=== PATIENT | female | born 1970 | race Caucasian/White ===

== ENCOUNTER 2017-05-18 10:55 | Inpatient (IN) | payer OTHER ==
[2017-05-18] MEDS ORDERED: Sodium Chloride 0.9% 1,000 ML IV STA (12:27)
--- NOTE | 2017-05-18 12:33 | ED PDOC ---
HPI: General Adult Time Seen by Provider: 05/18/17 11:01 Chief Complaint (Nursing): Pain, Chronic History Per: Patient, Support Specialist (Pashto #[id number]) Additional Complaint(s): Pt. states 1 week ago she was sitting down when she developed dizziness and both her eyes went "black." States that symptoms resolved after 2 minutes and did not return again until today at 0800. Reports symptoms lasted for approximately 10 minutes then resolved but at 0930 dizziness and visual changes occurred and lasted for 20 minutes. Reports dizziness has remained and states symptoms are worse with movement of the head. Also reports for the past week she 's had worsening diffuse bodyaches. Denies fever, headache, trauma, chest pain, palpitations, diarrhea, SOB, hearing changes, recent illness. Past Medical History Reviewed: Historical Data, Nursing Documentation, Vital Signs Vital Signs: Last Vital Signs Temp 98.7 F 05/18/17 16:28 Pulse 87 05/18/17 16:28 Resp 17 05/18/17 16:37 BP 109/71 05/18/17 16:28 Pulse Ox 100 05/18/17 16:37 - Medical History PMH: Diabetes, Hypercholesterolemia Denies: Chronic Kidney Disease - Family History Family History: States: No Known Family Hx - Home Medications Home Medications: Ambulatory Orders Medication Instructions Recorded Cholecalciferol [Vitamin D 1000 IU] 1,000 unit PO DAILY 05/18/17 Dapagliflozin Propanediol [Farxiga] 5 mg PO DAILY 05/18/17 Gabapentin [Neurontin] 100 mg PO HS 05/18/17 MetFORMIN [glucoPHAGE] 1,000 mg PO BID 05/18/17 Naproxen [Naprosyn] 500 mg PO Q12H PRN 05/18/17 Pravastatin Sodium [Pravachol] 40 mg PO HS 05/18/17 Repaglinide [Prandin] 1 mg PO TID 05/18/17 - Allergies Allergies/Adverse Reactions: Allergies Allergy/AdvReac Type Severity Reaction Status Date / Time No Known Allergies Allergy Verified 09/27/15 16:08 Review of Systems ROS Statement: Except As Marked, All Systems Reviewed And Found Negative Neurological: Positive for: Dizziness Physical Exam - Reviewed Nursing Documentation Reviewed: Yes Vital Signs Reviewed: Yes - Physical Exam Appears: Positive for: Well, Non-toxic, No Acute Distress Head Exam: Positive for: ATRAUMATIC, NORMAL INSPECTION, NORMOCEPHALIC Skin: Positive for: Normal Color, Warm. Negative for: Rash Eye Exam: Positive for: EOMI, Normal appearance, PERRL ENT: Positive for: Normal ENT Inspection Neck: Positive for: Normal, Painless ROM Cardiovascular/Chest: Positive for: Regular Rate, Rhythm Respiratory: Positive for: CNT, Normal Breath Sounds Gastrointestinal/Abdominal: Positive for: Normal Exam, Bowel Sounds, Soft. Negative for: Tenderness Back: Positive for: Normal Inspection Extremity: Positive for: Normal ROM Neurologic/Psych: Positive for: Alert, Oriented. Negative for: Aphasia, Facial Droop - Laboratory Results Result Diagrams: 05/18/17 12:30 05/18/17 12:30 - ECG ECG: Positive for: Interpreted By Me ECG Rhythm: Positive for: Sinus Rhythm. Negative for: ST/T Changes Rate: 87 O2 Sat by Pulse Oximetry: 100 - Radiology X-Ray: Interpreted by Me (CXR) X-Ray Interpretation: No Acute Disease - Progress ED Course And Treament: Labs ordered. CT head w/o contrast ordered. IV NS bolus, antivert PO ordered. Pt. placed on nuclear monitoring technician. 1420 Case d/w Dr. Florian and Dr. Feliz, arrangements made for 23 hr telemetry observation. Disposition - Clinical Impression Clinical Impression: Near syncope - Patient ED Disposition Is Patient to be Admitted: Yes - Disposition Disposition Time: 14:23 Condition: FAIR - Pt Status Changed To: Hospital Disposition Of: Observation
--- NOTE | 2017-05-18 12:50 | CT ---
PROCEDURE: CT HEAD WITHOUT CONTRAST. HISTORY: dizziness COMPARISON: None available. TECHNIQUE: Axial computed tomography images were obtained through the head/brain without intravenous contrast. Radiation dose: Total exam DLP = 773.5 mGy-cm. This CT exam was performed using one or more of the following dose reduction techniques: Automated exposure control, adjustment of the mA and/or kV according to patient size, and/or use of iterative reconstruction technique. FINDINGS: HEMORRHAGE: No intracranial hemorrhage. BRAIN: No mass effect or edema. No atrophy or chronic microvascular ischemic changes. VENTRICLES: Unremarkable. No hydrocephalus. CALVARIUM: Unremarkable. PARANASAL SINUSES: Unremarkable as visualized. No significant inflammatory changes. MASTOID AIR CELLS: Unremarkable as visualized. No inflammatory changes. OTHER FINDINGS: None. IMPRESSION: No evidence of acute intracranial hemorrhage mass lesion mass effect or midline shift.
[2017-05-18 13:21] LABS: BASO % 0.3 % (0.0-2.0); EOS # 0.1 K/uL (0.0-0.7); EOS % 0.6 % (0.0-4.0); HEMATOCRIT 40.4 % (34.0-47.0); LYMPH # 2.4 K/uL (1.0-4.3); LYMPH % 25.5 % (20.0-40.0); MEAN CELL VOLUME 90.4 fl (81.0-99.0); MEAN CORPUSCULAR HEMOGLOBIN 31.1 pg (27.0-31.0); MEAN CORPUSCULAR HGB CONC 34.4 g/dL (33.0-37.0); MEAN PLATELET VOLUME 9.2 fl (7.2-11.7); MONO # 0.7 K/uL (0.0-0.8); MONO % 7.1 % (0.0-10.0); NEUT # 6.4 K/uL (1.8-7.0); NEUT % 66.5 % (50.0-75.0); NRBC % 0.1 % (0.0-0.0); RED CELL DISTRIBUTION WIDTH 13.2 % (11.5-14.5); WHITE BLOOD COUNT 9.6 K/uL (4.8-10.8)
[2017-05-18 13:29] LABS: ALB/GLOB RATIO 1.6 (1.0-2.1); ALKALINE PHOSPHATASE 71 U/L (38-126); ALT/SGPT 31 U/L (9-52); AST/SGOT 27 U/L (14-36); BILIRUBIN,TOTAL 0.4 mg/dl (0.2-1.3); BLOOD UREA NITROGEN 15 mg/dl (7-17); CARBON DIOXIDE 21 mmol/L (22-30); CHLORIDE 107 mmol/L (98-107); GFR AFRICAN-AMERICAN > 60; GLUCOSE,RANDOM 85 mg/dL (65-105); POTASSIUM 3.9 MMOL/L (3.6-5.0); SODIUM 143 mmol/l (132-148); TOTAL PROTEIN 7.3 G/DL (6.3-8.2)
--- NOTE | 2017-05-18 13:30 | RAD ---
HISTORY: Dizziness. Portable study 12:49. COMPARISON: 09/27/2016 FINDINGS: LUNGS: No active pulmonary disease. PLEURA: No significant pleural effusion identified, no pneumothorax apparent. CARDIOVASCULAR: Normal. OSSEOUS STRUCTURES: No significant abnormalities. VISUALIZED UPPER ABDOMEN: Normal. OTHER FINDINGS: None. IMPRESSION: No active disease. No significant interval change compared to the prior examination(s).
[2017-05-18] MEDS ORDERED: Naproxen 500 MG TAB PO PRN (14:55)
[2017-05-18] MEDS ORDERED: Dextrose 50% SYRINGE Inj (50 ml) IV PRN (14:58)
[2017-05-18] MEDS ORDERED: Glucagon Recombinant 1 mg Inj IM PRN (14:58)
--- NOTE | 2017-05-18 15:17 | CP.PCM.HP ---
History of Present Illness - History of Present Illness History of Present Illness: 46 YO F PMH of DM2, HLD presents to the ER with episodes of dizziness over the last two weeks. Patient states that these episodes started after her PMD changed her diabetes mediation. She was initially taking Metformin and Prantin, and since her blood sugars remained elevated her PMD gave her samples to start taking, patient can not recall the name. PMD office was called and was unable to get in touch with her. - Patient describes the episodes of dizziness associated with sweating and palpitation, nausea but no vomiting which last up to 2 min. Patient had one eppisode at 8 am this morning and another one at 9:30 am this morning. Denies passing out or hitting her head. ROS: 14 systems reviewed, negative other than HPI MHx: DM2, HLD SHx: None Allergies: NKDA Medications: as per med-rec Family Hx: No family history of CAD, CVA, or other cardiovascular disease Social Hx: Lives with family, denies tobacco, occasional EtOH Present on Admission - Present on Admission Any Indicators Present on Admission: Yes History of Uncontrolled Diabetes: Yes Past Patient History - Past Social History Smoking Status: Never Smoked - CARDIAC Hx Cardiac Disorders: Yes (High cholesterol) - PULMONARY Hx Respiratory Disorders: No - NEUROLOGICAL Hx Neurological Disorder: No - HEENT Hx HEENT Problems: No - RENAL Hx Chronic Kidney Disease: No - ENDOCRINE/METABOLIC Hx Endocrine Disorders: Yes (DM 2) - HEMATOLOGICAL/ONCOLOGICAL Hx Blood Disorders: No - INTEGUMENTARY Hx Dermatological Problems: No - MUSCULOSKELETAL/RHEUMATOLOGICAL Hx Musculoskeletal Disorders: No - GASTROINTESTINAL Hx Gastrointestinal Disorders: No - GENITOURINARY/GYNECOLOGICAL Hx Genitourinary Disorders: No - PSYCHIATRIC Hx Psychophysiologic Disorder: No Hx Substance Use: No - SURGICAL HISTORY Hx Surgeries: No - ANESTHESIA Hx Anesthesia: No Meds Allergies/Adverse Reactions: Allergies Allergy/AdvReac Type Severity Reaction Status Date / Time No Known Allergies Allergy Verified 09/27/15 16:08 Physical Exam - Constitutional Appears: No Acute Distress - Head Exam Head Exam: NORMAL INSPECTION - Eye Exam Eye Exam: Normal appearance - Neck Exam Neck exam: Positive for: Normal Inspection - Respiratory Exam Respiratory Exam: Clear to Auscultation Bilateral, NORMAL BREATHING PATTERN. absent: Rhonchi, Wheezes - Cardiovascular Exam Cardiovascular Exam: REGULAR RHYTHM, +S1, +S2 - GI/Abdominal Exam GI & Abdominal Exam: Normal Bowel Sounds, Soft. absent: Tenderness - Extremities Exam Extremities exam: Positive for: normal inspection. Negative for: calf tenderness - Back Exam Back exam: NORMAL INSPECTION - Neurological Exam Neurological exam: Alert, CN II-XII Intact, Oriented x3 - Skin Skin Exam: Normal Color, Warm Results - Vital Signs Recent Vital Signs: Last Vital Signs Temp 98.4 F 05/18/17 14:58 Pulse 94 H 05/18/17 14:58 Resp 17 05/18/17 14:58 BP 109/67 05/18/17 14:58 Pulse Ox 100 05/18/17 14:58 - Labs Result Diagrams: 05/18/17 12:30 05/18/17 12:30 Labs: Laboratory Results - last 24 hr 05/18/17 05/18/17 12:30 12:30 WBC 9.6 D RBC 4.47 Hgb 13.9 Hct 40.4 MCV 90.4 D MCH 31.1 H MCHC 34.4 RDW 13.2 Plt Count 239 MPV 9.2 Neut % (Auto) 66.5 Lymph % (Auto) 25.5 [place] % (Auto) 7.1 Eos % (Auto) 0.6 Baso % (Auto) 0.3 Neut # 6.4 Lymph # 2.4 [place] # 0.7 Eos # 0.1 Baso # 0.0 Sodium 143 Potassium 3.9 Chloride 107 Carbon Dioxide 21 L Anion Gap 19 BUN 15 Creatinine 0.5 L Est GFR ( Amer) > 60 Est GFR (Non-Af Amer) > 60 Random Glucose 85 Calcium 9.0 Total Bilirubin 0.4 AST 27 ALT 31 Alkaline Phosphatase 71 Troponin I < 0.0120 Total Protein 7.3 Albumin 4.5 Globulin 2.8 Albumin/Globulin Ratio 1.6 Assessment & Plan - Assessment and Plan (Free Text) Assessment: 1) Dizziness near syncope: - Most likely secondary to hypoglycemia with new medication - F/U with medication patient was taking: Asked her daughter to bring medication - CT :No acute changes noted - Meclazine PRN - Neuro and cardio consulted 2) DM 2: - Metformin 1000 BID - F/U with pts sample medication she was taking 3) HLD - continue home meds 4) DVT prophylaxis - Lovenox
--- NOTE | 2017-05-18 16:24 | CP.PCM.CON ---
History of Present Illness - History of Present Illness History of Present Illness: PT W SEVERAL EPISODES OF DIZZINESS WITH TREMULOUSNESS AND NAUSEA. PT DRANK JUICE WITH RESOLUTION. NEW DM STARTED RECENTLY. DOESNT RECALL IF SHE ATE PRIOR TO MEDS. NO CP, NO PALP, NO SYNCOPE, NO SOB. MILD DYSPNEA WITH DIZZINESS. SX CAME ON GRADUALLY AND RESOLVED GRADUALLY. Review of Systems - Constitutional Constitutional: As Per HPI. absent: Anorexia, Chills, Daytime Sleepiness, Excessive Sweating, Fatigue, Fever, Frequent Falls, Headache, Increased Appetite , Lethargy, Malaise, Night Sweats, Snoring, Sleep Apnea, Weight Gain, Weight Loss, Weakness, Other - EENT Eyes: As Per HPI. absent: Blind Spots, Blurred Vision, Change in Vision, Decreased Night Vision, Diplopia, Discharge, Dry Eye, Exophthalmos, Floaters, Irritation, Itchy Eyes, Loss of Peripheral Vision, Pain, Photophobia, Requires Corrective Lenses, Sees Flashes, Spots in Vision, Tunnel Vision, Other Visual Disturbances, Loss of Vision, Other Ears: As Per HPI. absent: Decreased Hearing, Ear Discharge, Ear Pain, Tinnitus , Abnormal Hearing, Disequilibrium, Dizziness, Other Nose/Mouth/Throat: As Per HPI. absent: Epistaxis, Nasal Congestion, Nasal Discharge, Nasal Obstruction, Nasal Trauma, Nose Pain, Post Nasal Drip, Sinus Pain, Sinus Pressure, Bleeding Gums, Change in Voice, Dental Pain, Dry Mouth, Dysphagia, Halitosis, Hoarsness, Lip Swelling, Mouth Lesions, Mouth Pain, Odynophagia, Sore Throat, Throat Swelling, Tongue Swelling, Facial Pain, Neck Pain, Neck Mass, Other - Breasts Breasts: absent: As Per HPI, Change in Shape, Mass, Pain, Nipple Discharge, Nipple Inversion, Skin Changes, Swelling, Other - Cardiovascular Cardiovascular: Dyspnea, Lightheadedness. absent: As Per HPI, Acrocyanosis, Chest Pain, Chest Pain at Rest, Chest Pain with Activity, Claudication, Diaphoresis, Dyspnea on Exertion, Edema, Irregular Heart Rhythm, Pain Radiating to Arm/Neck/Jaw, Leg Edema, Leg Ulcers, Orthopnea, Palpitations, Paroxysmal Nocturnal Dyspnea, Pedal Edema, Radiating Pain, Rapid Heart Rate, Slow Heart Rate, Syncope, Other - Respiratory Respiratory: absent: As Per HPI, Cough, Dyspnea, Hemoptysis, Dyspnea on Exertion , Wheezing, Snoring, Stridor, Pain on Inspiration, Chest Congestion, Excessive Mucous Production, Change in Mucous Color, Pain with Coughing, Other - Gastrointestinal Gastrointestinal: As Per HPI, Nausea. absent: Abdominal Pain, Belching, Bloating, Change in Bowel Habits, Change in Stool Character, Coffee Ground Emesis, Constipation, Cramping, Diarrhea, Dyspepsia, Dysphagia, Early Satiety, Excessive Flatus, Fecal Incontinence, Heartburn, Hematemesis, Hematochezia, Loose Stools, Melena, Odynophagia, Temesmus, Vomiting, Other - Genitourinary Genitourinary: absent: As Per HPI, Change in Urinary Stream, Difficulty Urinating, Dysuria, Flank Pain, Hematuria, Pyuria, Nocturia, Urinary Incontinence, Urinary Frequency, Urinary Hesitance, Urinary Urgency, Voiding Freq/Small Amts, Freq UTI, Hx Renal/Bladder Calculi, Hx /Renal Surgery, Bladder Distension, Other - Reproductive: Female Reproductive:Female: absent: As Per HPI, Amenorrhea, Amenorrhea/ Control, Currently Menstual, Cycle <21 Days, Cycle >35 Days, Cycle Variable, Menses 1-7 Days, Menses >/= 8 Days, Menses Variable, Cycle > 4 Weeks Between, No Menses for 6 Months, Heavy Menses, Light Menses, Normal Menses, Spotting Between Cycles , S/P Hysterectomy, Menopausal, Post Menopausal, Premenarche, Abnormal Vaginal Bleeding, Dysmenorrhea, Dyspareunia, Genital Lesions, Genital Pruritis, Pelvic Pain, Prolapse Symptoms, Sexual Dysfunction, Vaginal Discharge, Vaginal Dryness , Vaginal Odor, Vaginal Pruritis, Other - Menstruation Menstruation: absent: As Per HPI, Amenorrhea, Amenorrhea/ Control, Currently Menstual, Cycle <21 Days, Cycle >35 Days, Cycle Variable, Menses 1-7 Days, Menses >/= 8 Days, Menses Variable, Cycle > 4 Weeks Between, No Menses for 6 Months, Heavy Menses, Light Menses, Normal Menses, Spotting Between Cycles , S/P Hysterectomy, Menopausal, Post Menopausal, Premenarche, Abnormal Vaginal Bleeding, Dysmenorrhea, Other - Musculoskeletal Musculoskeletal: absent: As Per HPI, Abnormal Gait, Arthralgias, Atrophy, Back Pain, Deformity, Joint Swelling, Limited Range of Motion, Loss of Height, Muscle Cramps, Muscle Weakness, Myalgias, Neck Pain, Numbness, Radiating Pain into Limb, Stiffness, Tingling, Other - Integumentary Integumentary: absent: As Per HPI, Acne, Alopecia, Bleeding Lesions, Change in Hair, Change in Nails, Change in Pigmentation, Changing Lesions, Dry Skin, Erythema, Furuncle, Hirsutism, Lesions, New Lesions, Non-Healing Lesions, Photosensitivity, Pruritus, Rash, Skin Pain, Skin Ulcer, Sores, Striae, Swelling , Unusual Bruising, Wounds, Jaundice, Other - Neurological Neurological: absent: As Per HPI, Abnormal Gait, Abnormal Hearing, Abnormal Movements, Abnormal Speech, Behavioral Changes, Burning Sensations, Confusion, Convulsions, Disequilibrium, Dizziness, Numbness, Focal Weakness, Frequent Falls , Headaches, Lack of Coordination, Loss of Vision, Memory Loss, Paresthesias, Radicular Pain, Restless Legs, Sensory Deficit, Syncope, Tingling, Tremor, Vertigo, Weakness, Other Visual Disturbances, Other - Psychiatric Psychiatric: absent: As Per HPI, Abnormal Sleep Pattern, Anhedonia, Anxiety, Auditory Hallucinations, Behavioral Changes, Change in Appetite, Change in Libido, Confusion, Depression, Difficulty Concentrating, Hallucinations, Homicidal Ideation, Hopelessness, Irritability, Memory Loss, Mood Swings, Panic Attacks, Paranoia, Suicidal Ideation, Visual Hallucinations, Tactile Hallucinations, Other - Endocrine Endocrine: absent: As Per HPI, Change in Body Appearance, Change in Libido, Cold Intolorance, Deepening of Voice, Excessive Sweating, Fatigue, Flushing, Heat Intolorance, Increase in Ring/Shoe/Hat Size, Palpitations, Polydipsia, Polyphagia, Polyuria, Other - Hematologic/Lymphatic Hematologic: absent: As Per HPI, Easy Bleeding, Easy Bruising, Lymphadenopathy, Other Past Patient History - Past Social History Smoking Status: Never Smoked Chewing Tobacco Use: No Cigar Use: No Alcohol: None Drugs: Denies Home Situation {Lives}: With Family Domestic Violence: Negative - CARDIAC Hx Cardiac Disorders: Yes (High cholesterol) - PULMONARY Hx Respiratory Disorders: No - NEUROLOGICAL Hx Neurological Disorder: No - HEENT Hx HEENT Problems: No - RENAL Hx Chronic Kidney Disease: No - ENDOCRINE/METABOLIC Hx Endocrine Disorders: Yes (DM 2) - HEMATOLOGICAL/ONCOLOGICAL Hx Blood Disorders: No - INTEGUMENTARY Hx Dermatological Problems: No - MUSCULOSKELETAL/RHEUMATOLOGICAL Hx Musculoskeletal Disorders: No - GASTROINTESTINAL Hx Gastrointestinal Disorders: No - GENITOURINARY/GYNECOLOGICAL Hx Genitourinary Disorders: No - PSYCHIATRIC Hx Psychophysiologic Disorder: No Hx Substance Use: No - SURGICAL HISTORY Hx Surgeries: No - ANESTHESIA Hx Anesthesia: No Meds Allergies/Adverse Reactions: Allergies Allergy/AdvReac Type Severity Reaction Status Date / Time No Known Allergies Allergy Verified 09/27/15 16:08 - Medications Medications: Current Medications Dextrose (Dextrose 50% Inj) 0 ml IV STAT PRN; Protocol PRN Reason: Hyglycemia Protocol Dextrose (Glutose 15) 0 gm PO ONCE PRN; Protocol PRN Reason: Hypoglycemia Protocol Enoxaparin Sodium (Lovenox) 40 mg SC DAILY PRANAV PRN Reason: Protocol Gabapentin (Neurontin) 100 mg PO HS PRANAV Glucagon (Glucagen Diagnostic Kit) 0 mg IM STAT PRN; Protocol PRN Reason: Hypoglycemia Protocol Meclizine HCl (Antivert) 12.5 mg PO DAILY PRN PRN Reason: Dizziness Metformin HCl (Glucophage) 1,000 mg PO BID PRANAV Naproxen (Naproxen) 500 mg PO Q12H PRN PRN Reason: Pain, moderate (4-7) Pravastatin Sodium (Pravachol) 40 mg PO HS PRANAV Physical Exam - Constitutional Appears: Well - Head Exam Head Exam: ATRAUMATIC, NORMAL INSPECTION, NORMOCEPHALIC - Eye Exam Eye Exam: EOMI, Normal appearance, PERRL. absent: Conjunctival injection, Nystagmus, Periorbital swelling, Periorbital tenderness, Scleral icterus Pupil Exam: NORMAL ACCOMODATION, PERRL. absent: Fixed, Irregular, Miosis, Mydriatic, Unequal - ENT Exam ENT Exam: Mucous Membranes Moist, Normal Exam. absent: Mucous Membranes Dry, Normal External Ear Exam, Normal Oropharynx, TM's Normal Bilaterally - Neck Exam Neck exam: Positive for: Normal Inspection. Negative for: Full Rom, Lymphadenopathy, Meningismus, Tenderness, Thyromegaly - Respiratory Exam Respiratory Exam: Clear to Auscultation Bilateral, NORMAL BREATHING PATTERN. absent: Accessory Muscle Use, Chest Wall Tenderness, Decreased Breath Sounds, Prolonged Expiratory Phase, Rales, Rhonchi, Wheezes, Respiratory Distress, Stridor - Cardiovascular Exam Cardiovascular Exam: REGULAR RHYTHM, +S1, +S2, Systolic Murmur. absent: Bradycardia, Tachycardia, Clicks, Diastolic murmur, Gallop, Irregular Rhythm, JVD, RRR, Rubs, +S4 - GI/Abdominal Exam GI & Abdominal Exam: Normal Bowel Sounds, Soft. absent: Bruit, Diminished Bowel Sounds, Distended, Firm, Guarding, Hernia, Hyperactive Bowel Sounds, Hypoactive Bowel Sounds, Mass, Organomegaly, Pulsatile Mass, Rebound, Rigid, Tenderness - Rectal Exam Rectal Exam: Deferred - Extremities Exam Extremities exam: Positive for: normal inspection. Negative for: calf tenderness, full ROM, joint swelling, normal capillary refill, pedal edema, tenderness, pedal pulses present - Back Exam Back exam: NORMAL INSPECTION. absent: CVA tenderness (L), CVA tenderness (R), FULL ROM, muscle spasm, paraspinal tenderness, rash noted, tenderness, vertebral tenderness - Neurological Exam Neurological exam: Alert, CN II-XII Intact, Normal Gait, Oriented x3, Reflexes Normal - Psychiatric Exam Psychiatric exam: Normal Affect, Normal Mood - Skin Skin Exam: Dry, Intact, Normal Color, Warm Results - Vital Signs Recent Vital Signs: Last Vital Signs Temp 98.4 F 05/18/17 15:28 Pulse 93 H 05/18/17 15:28 Resp 18 05/18/17 15:28 BP 110/74 05/18/17 15:28 Pulse Ox 99 05/18/17 15:28 - Labs Result Diagrams: 05/20/17 07:20 05/20/17 06:00 Labs: Laboratory Results - last 24 hr 05/18/17 05/18/17 12:30 12:30 WBC 9.6 D RBC 4.47 Hgb 13.9 Hct 40.4 MCV 90.4 D MCH 31.1 H MCHC 34.4 RDW 13.2 Plt Count 239 MPV 9.2 Neut % (Auto) 66.5 Lymph % (Auto) 25.5 [place] % (Auto) 7.1 Eos % (Auto) 0.6 Baso % (Auto) 0.3 Neut # 6.4 Lymph # 2.4 [place] # 0.7 Eos # 0.1 Baso # 0.0 Sodium 143 Potassium 3.9 Chloride 107 Carbon Dioxide 21 L Anion Gap 19 BUN 15 Creatinine 0.5 L Est GFR ( Amer) > 60 Est GFR (Non-Af Amer) > 60 Random Glucose 85 Calcium 9.0 Total Bilirubin 0.4 AST 27 ALT 31 Alkaline Phosphatase 71 Troponin I < 0.0120 Total Protein 7.3 Albumin 4.5 Globulin 2.8 Albumin/Globulin Ratio 1.6 Assessment & Plan (1) DM2 (diabetes mellitus, type 2) Status: Acute (2) HLD (hyperlipidemia) Status: Acute (3) Near syncope Status: Acute - Assessment and Plan (Free Text) Plan: SX APPEAR TO BE HYPOGLYCEMIA IN NATURE. CONT TELE, AWAIT ECHO, UT RULED OUT. BP STABLE, HR STABLE
[2017-05-18] MEDS: Sodium Chloride 0.9% 1,000 ML IV SCH (17:43)
--- NOTE | 2017-05-18 18:35 | MRI ---
PROCEDURE: MRI brain dated 05/18/2017 HISTORY: Dizziness. COMPARISON: Comparison made with CT scan of the brain obtained earlier same day TECHNIQUE: Multiplanar, multisequence MR images of the brain were obtained without intravenous contrast enhancement. FINDINGS: HEMORRHAGE: No acute parenchymal, subarachnoid or extra-axial hemorrhage. No hemosiderin deposition is identified on gradient echo weighted sequence. DWI: No evidence of an acute or early subacute infarction seen on diffusion imaging. . BRAIN PARENCHYMA: There are several tiny and nonspecific focal areas of increased T2 signal seen scattered about the deep and subcortical white matter both cerebral hemispheres. Changes are nonspecific though could represent chronic sequela of small vessel disease. Additional differential diagnostic considerations would include sequela of migraine headaches, old trauma, post infectious/inflammatory etiologies. Atypical presentation of a demyelinating disease process would be much less likely in the absence of a pertinent clinical history however not completely excluded. . VENTRICLES: No obstructive hydrocephalus. There is localized prominent on right parasagittal medullary cistern which appears to compress the basilar artery and right anterolateral medulla . This finding could represent an incidental arachnoid cyst. MRA of the brain is recommended for further evaluation and to exclude the possibility of an aneurysm which is unlikely CRANIUM: Calvarium appears grossly unremarkable. ORBITS: Orbits and contents unremarkable. PARANASAL SINUSES/MASTOIDS: Clear VASCULAR SYSTEM: Visualized major vascular flow voids at skull base are patent. OTHER FINDINGS: None. IMPRESSION: No acute intracranial hemorrhage or infarct. There are a few scattered several focal areas of increased T2 signal seen scattered about the deep and subcortical white matter both cerebral hemispheres on the nonspecific though may represent chronic sequela of small vessel disease. See above discussion for additional differential diagnostic considerations. Note is made of a localized prominence of the right parasagittal pre medullary cistern which appears to compress the basilar artery and right anterolateral border of the medulla. This may represent an arachnoid cyst. Recommend follow-up MRA of the brain to exclude the possibility of an aneurysm which is very unlikely though should confirmed.
--- NOTE | 2017-05-18 19:47 | CON ---
NEUROLOGY CONSULTATION REPORT DATE: REASON FOR CONSULTATION: Recurrent near syncope and dizziness. HISTORY OF PRESENT ILLNESS: The patient is a 46-year-old female who has been asked for evaluation of episodes of almost passing out. The patient currently is experiencing dizziness over the last 2 weeks. As per the patient, it started after her primary physician changed her antidiabetic medication. Patient described episodes as she gets dizzy and feels sweaty and start having palpitation and nausea, but no vomiting. This lasts a couple of minutes and then she gets better. She apparently had 3 such episodes during which she felt like she was going to pass out, but did not pass out completely. Denied any focal weakness in arms or legs. Denies any ringing in the ears or loss of hearing. Denies any loss of vision. PAST MEDICAL HISTORY: Includes diabetes mellitus, hypercholesterolemia. MEDICATIONS: At home include Prandin, Glucophage, Neurontin, vitamin D, Pravachol, and Naprosyn. ALLERGIES: NO KNOWN DRUG ALLERGIES. SOCIAL HISTORY: Patient is a nonsmoker, nonalcoholic, and does not use any illicit drugs. FAMILY HISTORY: Reviewed and noncontributory to the case. PHYSICAL EXAMINATION GENERAL: Patient is a middle aged female, lying on the bed in no acute distress. VITAL SIGNS: Her blood pressure is 109/67, her heart rate is 94 per minute, breathing at the rate of 16 per minute, temperature is 98.4 degrees Fahrenheit. HEENT: Normocephalic, atraumatic. NECK: Supple. There is no carotid bruits. LUNGS: Clear. CARDIOVASCULAR: S1 and S2 are audible. No murmurs. ABDOMEN: Soft, nontender. Bowel sounds are present. NEUROLOGY: Mini-mental status; patient is awake, alert, oriented to time, place, and person. Her speech is fluent. Naming and repetition is normal. Memory and cognition are intact. Cranial nerve: Pupils are 4 mm, bilaterally reactive to light. Visual sharma are full. Extraocular movements are intact. There is no facial asymmetry. Palate is upgoing bilaterally and tongue is midline. Motor: Tone is normal, power is 5/5 bilaterally in all extremities. The reflexes +2 and symmetrical. Plantars are downgoing bilaterally. Cerebellar: Ijxxjk-hq-ihfl shows no dysmetria. Sensory examination; intact to soft touch and pinprick. Gait is deferred at the moment. LABORATORY DATA: Reviewed. WBC 9.6, hemoglobin 13.9, hematocrit 40.4, and platelet of 239. The sodium 143, potassium 3.9, chloride 107, carbon dioxide content 21, BUN of 15, creatinine 0.5, and glucose of 85. She had a CT scan of the head, which is negative for any acute intracranial pathology. IMPRESSION: 1. Near syncope. 2. Dizziness. RECOMMENDATIONS: 1. Patient to have MRI of the brain without contrast. 2. Patient to have an electroencephalogram. 3. Patient to have cardiac monitoring to rule out any cardiac arrhythmias. 4. Please continue all other treatments and supportive care. Thank you for the opportunity to participate in the care of this patient. Jarad Crawley MD
[2017-05-18] MEDS: Pravastatin Sodium 40 MG TAB PO SCH (21:08)
[2017-05-19] MEDS: Sodium Chloride 0.9% 1,000 ML IV SCH ×2 (03:30→14:16)
[2017-05-19 07:26] LABS: BLOOD UREA NITROGEN 14 mg/dl (7-17); CALCIUM 8.4 mg/dL (8.4-10.2); CARBON DIOXIDE 23 mmol/L (22-30); CHLORIDE 109 mmol/L (98-107); GFR AFRICAN-AMERICAN > 60; GLUCOSE,RANDOM 106 mg/dL (65-105); MAGNESIUM 1.9 MG/DL (1.6-2.3); POTASSIUM 3.6 MMOL/L (3.6-5.0); SODIUM 142 mmol/l (132-148)
[2017-05-19 07:49] LABS: THYROID STIMULATING HORMONE 0.72 mIU/ML (0.46-4.68)
[2017-05-19] MEDS ORDERED: Gadodiamide 287 MG/ML VIAL (15ML) IV ONE (08:12)
[2017-05-19] MEDS ORDERED: Sodium Chloride 0.9% 50 ML IV ONE (08:12)
--- NOTE | 2017-05-19 12:18 | CARD ---
APPROVED REPORT EXAM: Two-dimensional and M-mode echocardiogram with Doppler and color Doppler. Other Information Quality : GoodRhythm : NSR INDICATION Dizziness and Vertigo 2D DIMENSIONS Left Atrium (2D)2.77 (1.6-4.0cm)IVSd1.00 (0.7-1.1cm) Aortic Root (2D)2.43 (2.0-3.7cm)LVDd4.41 (3.9-5.9cm) LVOT Diameter1.98 (1.8-2.4cm)PWd0.59 (0.7-1.1cm) IVSs1.23 (0.8-1.2cm)LVDs2.87 (2.5-4.0cm) FS (%) 35.0 %PWs1.34 (0.8-1.2cm) M-Mode DIMENSIONS Left Atrium (MM)3.30 (2.5-4.0cm)IVSd0.82 (0.7-1.1cm) Aortic Root2.74 (2.2-3.7cm)LVDd4.74 (4.0-5.6cm) Aortic Cusp Exc.1.56 (1.5-2.0cm)PWd0.64 (0.7-1.1cm) IVSs0.95 cmFS (%) 24 % LVDs3.59 (2.0-3.8cm)PWs1.21 cm Mitral Valve MV E Zkqhunlz40.3cm/sMV DECEL [id number] A Ewsxbfmn55.6cm/s MV FMS28owQ/A ratio1.4MVA (PHT)4.63cm2 TDI Lateral E' Peak V14.75cm/sMedial E' Peak V9.70cm/sE/Lateral E'5.7 E/Medial E'8.7 Pulmonary Valve PV Peak Kayyhnwr91.0cm/s Tricuspid Valve TR Peak Rbwovqbi827by/sRAP YAEXTRAT85fdKgXC Peak Gr.14mmHg [id number] LEFT VENTRICLE The left ventricle is normal size. There is normal left ventricular wall thickness. The left ventricular function is normal. The left ventricular ejection fraction is within the normal range. The Ejection Fraction is 60-65%. There is normal LV segmental wall motion. The left ventricular diastolic function is normal. No left ventricle thrombus noted on this study. There is no mass noted in the left ventricle. RIGHT VENTRICLE The right ventricle is normal size. There is normal right ventricular wall thickness. The right ventricular systolic function is normal. ATRIA The left atrium size is normal. The right atrium size is normal. The interatrial septum is intact with no evidence for an atrial septal defect. AORTIC VALVE The aortic valve is normal in structure and function. No aortic regurgitation is present. There is no aortic valvular stenosis. There is no aortic valvular vegetation. MITRAL VALVE The mitral valve is normal in structure and function. There is no evidence of mitral valve prolapse. There is no mitral valve stenosis. There is no mitral valve regurgitation noted. TRICUSPID VALVE The tricuspid valve is normal in structure and function. There is no tricuspid valve regurgitation noted. There is no tricuspid valve prolapse or vegetation. There is no tricuspid valve stenosis. PULMONIC VALVE The pulmonary valve is normal in structure and function. There is no pulmonic valvular regurgitation. There is no pulmonic valvular stenosis. GREAT VESSELS The aortic root is normal in size. The IVC is normal in size and collapses >50% with inspiration. PERICARDIAL EFFUSION The pericardium appears normal. There is no pleural effusion. <Conclusion> The left ventricle is normal size. The left ventricular function is normal. The left ventricular ejection fraction is within the normal range. The Ejection Fraction is 60-65%.
--- NOTE | 2017-05-19 12:42 | PN ---
DATE: 05/19/2017 SUBJECTIVE: The patient is seen and examined. Interim events noted. Consults noted and appreciated. Neurology and cardiology followup and intervention noted and appreciated. Patient remains in Progressive Care Unit on telemetry monitoring. Patient feels much better. No chest pain, no shortness of breath, no dizziness, no periods of loss consciousness. PHYSICAL EXAMINATION: GENERAL: Patient is in no acute distress. VITAL SIGNS: Stable. Temperature 98.3, pulse 78, respirations 18, blood pressure 100/64. HEENT: Pupils are reacting to light. No JVD. No thyromegaly. No lymphadenopathy. No nystagmus. Normocephalic and atraumatic skull. HEART: S1 and S2, normal and regular. LUNGS: Good bilateral air exchange. ABDOMEN: Soft, nontender. No organomegaly. No fluid. Bowel sounds are present. EXTREMITIES: No edema. No calf swelling. No tenderness. No acute ischemia. CENTRAL NERVOUS SYSTEM: Essentially unchanged. DIAGNOSTIC DATA: Available diagnostic data reviewed. Sodium 142, potassium 3.6, chloride 109, bicarbonate 23, BUN 14, creatinine 0.6. SMA-12 otherwise is unremarkable. THS level is normal. MRI of brain does not reveal any acute finding, but does mention a localized prominence of right premedullary cistern, which appears to compress the basilar artery and anterolateral border of the medulla. Possibility of arachnoid cyst is raised. Telemetry monitoring does not reveal significant arrhythmias. ASSESSMENT AND PLAN: Overall, the patient's general medical condition is stable. Plan as ordered. Serg Florian MD
--- NOTE | 2017-05-19 13:01 | MRI ---
PROCEDURE: MRI BRAIN WITH AND WITHOUT CONTRAST HISTORY: Abn MRI report COMPARISON: None. TECHNIQUE: Multiplanar, multisequence MR images of the brain were obtained with and without intravenous contrast enhancement. FINDINGS: HEMORRHAGE: None DWI: No evidence of an acute or early subacute infarction. BRAIN PARENCHYMA: No mass,mass effect or edema. No atrophy or chronic microvascular ischemic changes. ENHANCEMENT: No abnormal intracranial enhancement. VENTRICLES: Unremarkable. No hydrocephalus. CRANIUM: Unremarkable. ORBITS: Grossly unremarkable. PARANASAL SINUSES/MASTOIDS: Clear VASCULAR SYSTEM: Skull base flow voids intact. OTHER FINDINGS: None . IMPRESSION: Unremarkable pre and post contrast enhanced MRI of the brain.
[2017-05-19] MEDS: Enoxaparin 40 mg Syringe SC SCH (14:13)
[2017-05-19] MEDS ORDERED: Potassium Chloride 20 mEq/15 ml LIQ UD PO ONE (14:45)
[2017-05-19] MEDS: Pravastatin Sodium 40 MG TAB PO SCH (21:19)
--- NOTE | 2017-05-20 04:47 | PN ---
DATE: NEUROLOGY PROGRESS NOTE SUBJECTIVE: The patient is lying on the bed, in no acute distress. Denies having any further headache or dizziness. Feels better. Denies any focal weakness in her arms or legs. PHYSICAL EXAMINATION: VITAL SIGNS: Her blood pressure is 93/60, heart rate is 98 per minute, breathing at the rate of 16 per minute, temperature is 98.7 degrees Fahrenheit. HEENT EXAM: Head is normocephalic, atraumatic. NECK: Supple. There are no carotid bruits. LUNGS: Clear. CARDIOVASCULAR EXAM: S1 and S2 are audible. No murmurs. ABDOMEN: Soft and nontender. Bowel sounds are present. NEUROLOGY EXAMINATION: Mental status: The patient is awake, alert, oriented to time, place and person. Her speech is fluent. Naming and repetition are normal. Memory and cognition are intact. Cranial nerve examination: Pupils are 3 mm, bilaterally reactive to light. Visual sharma are full. Extraocular movements are intact. There is no facial asymmetry. Palate is upgoing bilaterally and tongue is midline. Motor examination: Tone is normal. Power is 5/5 bilaterally in all extremities. Reflexes +1 and symmetrical. Plantars downgoing bilaterally. LABORATORY DATA: Labs reviewed show MRI of the brain without contrast, shows no acute intracranial hemorrhage or infarct. There are a few scattered several focal areas of increased T2 signal seen scattered about the deep and subcortical white matter in both cerebral hemispheres and they are nonspecific, though may represent chronic sequelae of small vessel disease. Note is made of a localized prominence of the right parasagittal premedullary cistern, which appears to compress the basilar artery and right anterolateral border of the medulla. This may represent an arachnoid cyst. Recommend followup MRA of the brain to exclude the possibility of an aneurysm, which is very unlikely, though should be confirmed. The patient had subsequently had MRI of the brain with and without contrast, which is unremarkable. The patient also had MRA of the neck as well as head, which are done; however, the report is awaited. IMPRESSION: 1. Status post near syncope. 2. Dizziness, which is better now. RECOMMENDATIONS: 1. Please follow up the results of the MRA of the brain and neck. 2. The patient to have an electroencephalogram, which may be done as outpatient. 3. If MRA of the brain shows no acute pathology and the patient does not have any cardiac arrhythmias, then she may be discharged with outpatient followup and EEG to be done as an outpatient as well. 4. Please continue supportive care and other treatment. Thank you for the opportunity to participate in the care of this patient. Jarad Crawley MD
[2017-05-20 07:26] LABS: HEMATOCRIT 40.3 % (34.0-47.0); MEAN CELL VOLUME 90.6 fl (81.0-99.0); MEAN CORPUSCULAR HEMOGLOBIN 30.5 pg (27.0-31.0); MEAN CORPUSCULAR HGB CONC 33.7 g/dL (33.0-37.0); RED CELL DISTRIBUTION WIDTH 13.1 % (11.5-14.5); WHITE BLOOD COUNT 8.3 K/uL (4.8-10.8)
[2017-05-20 07:38] LABS: ALB/GLOB RATIO 1.5 (1.0-2.1); ALKALINE PHOSPHATASE 60 U/L (38-126); ALT/SGPT 36 U/L (9-52); AST/SGOT 25 U/L (14-36); BILIRUBIN,TOTAL 0.6 mg/dl (0.2-1.3); BLOOD UREA NITROGEN 13 mg/dl (7-17); CALCIUM 9.5 mg/dL (8.4-10.2); CARBON DIOXIDE 24 mmol/L (22-30); CHLORIDE 105 mmol/L (98-107); GFR AFRICAN-AMERICAN > 60; GLUCOSE,RANDOM 108 mg/dL (65-105); POTASSIUM 3.9 MMOL/L (3.6-5.0); SODIUM 141 mmol/l (132-148); TOTAL PROTEIN 6.9 G/DL (6.3-8.2)
--- NOTE | 2017-05-20 07:45 | MRI ---
PROCEDURE: Magnetic Resonance Angiography Brain HISTORY: Abn MRI report COMPARISON: None available. TECHNIQUE: 3D time of flight MR angiography of the intracranial arteries was performed. Rotating maximum intensity projection images were generated. FINDINGS: INTERNAL CAROTID ARTERIES: Unremarkable. The skull base, petrous, cavernous and supraclinoid segments are bilaterally widely patient. ANTERIOR CEREBRAL ARTERIES: Unremarkable. A1 and A2 segments are widely patent. Smaller distal branches unremarkable, as visualized. MIDDLE CEREBRAL ARTERIES: Unremarkable. M1 and M2 segments are widely patent. Perisylvian branches grossly symmetric. POSTERIOR CIRCULATION: Basilar Artery: Unremarkable. Distal Vertebral Arteries: Dominant right vertebral artery. . Posterior Cerebral Arteries: Unremarkable. Posterior Inferior Cerebellar Arteries: Unremarkable. ANEURYSM/ VASCULAR MALFORMATIONS: None. OTHER FINDINGS: None. IMPRESSION: Unremarkable MR angiography of the brain. Dominant right vertebral artery.
--- NOTE | 2017-05-20 07:47 | MRI ---
PROCEDURE: MR Angiography of the neck with and without contrast HISTORY: Abn MRI report COMPARISON: None available. TECHNIQUE: Contrast enhanced and [id number] angiography of the neck was performed. Rotating 3D maximum intensity projection images of the cervical carotid and vertebral arteries were generated. FINDINGS: RIGHT CAROTID ARTERIES: Common Carotid Artery: Normal. Carotid Bifurcation: Normal. Internal Carotid Artery:Normal. External Carotid Artery (proximal branches): Normal. LEFT CAROTID ARTERIES: Common Carotid Artery: Normal. Carotid Bifurcation: Normal. Internal Carotid Artery:Normal. External Carotid Artery (proximal branches): Normal. VERTEBRAL ARTERIES: Right Vertebral Artery: Dominant. Left Vertebral Artery: Normal. OTHER FINDINGS: None. IMPRESSION: Dominant right vertebral artery. Otherwise no significant stenosis.
[2017-05-20 07:54] VITALS: RESP 18; O2SAT 97
[2017-05-20] MEDS: Enoxaparin 40 mg Syringe SC SCH (09:15)
[2017-05-20 12:22] VITALS: BP 116/72; PULSE 81; TEMP 98
--- NOTE | 2017-05-20 13:01 | CP.PCM.PN ---
Subjective - Date & Time of Evaluation Date of Evaluation: 05/19/17 Time of Evaluation: 11:00 Objective - Vital Signs/Intake and Output Vital Signs (last 24 hours): Temp Pulse Resp BP Pulse Ox 98 F 81 18 116/72 97 05/20/17 12:21 05/20/17 12:21 05/20/17 12:21 05/20/17 12:21 05/20/17 12:21 - Labs Labs: 05/20/17 07:20 05/20/17 06:00
--- NOTE | 2017-05-20 13:13 | CP.PCM.PN ---
Subjective - Date & Time of Evaluation Date of Evaluation: 05/20/17 Time of Evaluation: 13:09 - Subjective Subjective: NO FURTHER DIZZINESS. ECHO NML EF Objective - Vital Signs/Intake and Output Vital Signs (last 24 hours): Temp Pulse Resp BP Pulse Ox 98 F 81 18 116/72 97 05/20/17 12:21 05/20/17 12:21 05/20/17 12:21 05/20/17 12:21 05/20/17 12:21 - Labs Labs: 05/20/17 07:20 05/20/17 06:00 Assessment and Plan (1) DM2 (diabetes mellitus, type 2) Status: Acute (2) HLD (hyperlipidemia) Status: Acute (3) Near syncope Status: Acute
--- NOTE | 2017-05-20 15:32 | PN ---
DATE: 05/20/2017 SUBJECTIVE: Patient seen and examined. Interim events noted. Consults noted and appreciated. Patient remains in Progressive Care Unit on telemetry monitoring. Feels okay, denies any specific complaints. No chest pain, no shortness of breath. No dizziness, no loss of consciousness. PHYSICAL EXAMINATION GENERAL: Patient is in no acute distress. VITAL SIGNS: Stable. HEART: S1 and S2, normal and regular. LUNGS: Good bilateral air entry. ABDOMEN: Soft and nontender. EXTREMITIES: No edema. No calf swelling. No tenderness. No acute ischemia. CENTRAL NERVOUS SYSTEM: Essentially unchanged. DIAGNOSTIC DATA: Available diagnostic data reviewed. ASSESSMENT AND PLAN: Overall, the patient's general medical condition is stable. Plan as ordered. Serg Florian MD
--- NOTE | 2017-05-21 08:56 | CARD ---
APPROVED REPORT EKG Measurement Heart [id number] VA [id number] <Conclusion> Normal sinus rhythm Concave ST elevation in I and AVL (?? Pericarditis) Normal ECG
== END 2017-05-20 12:30 | disposition left against medical advice (07) | DRG 294 ==
LOC: H.ER 10:55 → H.ERHOLD 14:40 → H.TEL 15:56 → OBSVTOIN 05-19 14:00
PROVIDERS: ADMIT Internal Medicine; ATTEND Internal Medicine
DX: E11.649 Type 2 diabetes mellitus with hypoglycemia without coma (principal); R55 Syncope and collapse; E78.5 Hyperlipidemia, unspecified

== ENCOUNTER 2018-07-27 17:04 | Emergency (ER) | payer OTHER ==
[2018-07-27] MEDS ORDERED: Iohexol 240 (50 ml) PO ONE (18:19)
[2018-07-27] MEDS ORDERED: Sodium Chloride 0.9% 1,000 ML IV STA (18:20)
--- NOTE | 2018-07-27 18:24 | ED PDOC ---
HPI: Abdomen Time Seen by Provider: 07/27/18 17:39 Chief Complaint (Nursing): Abdominal Pain Chief Complaint (Provider): Abdominal pain History Per: Patient Additional Complaint(s): 47 yo female, PMH of High Cholesterol and DM, presents to ED for evaluation of non radiating, epigastric abdominal pain and nausea which is worse when she eats. Denies vomiting/denies diarrhea. Also C/O headache since last night. No fever or chills. Pt took Motrin for her pain with little rleief. Past Medical History Reviewed: Nursing Documentation, Vital Signs Vital Signs: Last Vital Signs Temp 97.9 F 07/27/18 17:30 Pulse 76 07/27/18 17:30 Resp 18 07/27/18 17:30 BP 112/70 07/27/18 17:30 Pulse Ox 98 07/27/18 17:30 - Medical History PMH: Diabetes, Hypercholesterolemia Denies: HIV, Chronic Kidney Disease - Surgical History Surgical History: No Surg Hx - Family History Family History: States: Unknown Family Hx - Living Arrangements Living Arrangements: With Family - Social History Current smoker - smoking cessation education provided: No Alcohol: Social Drugs: Denies - Home Medications Home Medications: Ambulatory Orders Medication Instructions Recorded Cholecalciferol [Vitamin D 1000 IU] 1,000 unit PO DAILY 05/18/17 Dapagliflozin Propanediol [Farxiga] 5 mg PO DAILY 05/18/17 Gabapentin [Neurontin] 100 mg PO HS 05/18/17 MetFORMIN [glucoPHAGE] 1,000 mg PO BID 05/18/17 Naproxen [Naprosyn] 500 mg PO Q12H PRN 05/18/17 Pravastatin Sodium [Pravachol] 40 mg PO HS 05/18/17 Repaglinide [Prandin] 1 mg PO TID 05/18/17 - Allergies Allergies/Adverse Reactions: Allergies Allergy/AdvReac Type Severity Reaction Status Date / Time No Known Allergies Allergy Verified 07/27/18 17:29 Review of Systems ROS Statement: Except As Marked, All Systems Reviewed And Found Negative Gastrointestinal: Positive for: Nausea, Abdominal Pain Physical Exam - Reviewed Nursing Documentation Reviewed: Yes Vital Signs Reviewed: Yes - Physical Exam Appears: Positive for: Well, Non-toxic, No Acute Distress Head Exam: Positive for: ATRAUMATIC, NORMAL INSPECTION, NORMOCEPHALIC Skin: Positive for: Normal Color, Warm, DRY Eye Exam: Positive for: EOMI, Normal appearance, PERRL ENT: Positive for: Normal ENT Inspection Neck: Positive for: Normal, Painless ROM Cardiovascular/Chest: Positive for: Regular Rate, Rhythm Respiratory: Positive for: CNT, Normal Breath Sounds Gastrointestinal/Abdominal: Positive for: Soft, Tenderness (epigastric). Negative for: Distended, Guarding Back: Positive for: Normal Inspection Extremity: Positive for: Normal ROM Neurologic/Psych: Positive for: Alert, Oriented - Laboratory Results Result Diagrams: 07/27/18 19:22 07/27/18 19:22 - ECG O2 Sat by Pulse Oximetry: 98 Medical Decision Making Medical Decision Making: IV access established and treatment initiated with IVF, Zofran and Morphine Diagnostics ordered case endorsed to BAUTISTA Villareal at [address] scna and re-eval Disposition - Clinical Impression Clinical Impression: Abdominal cramps - Patient ED Disposition Is Patient to be Admitted: Transfer of Care - Disposition Disposition: Transfer of Care Disposition Time: 19:41 Condition: STABLE Forms: [employer] (Khmer)
[2018-07-27] MEDS ORDERED: Iohexol 240 (50 ml) ONE (18:29)
[2018-07-27 19:28] LABS: BASO % 0.4 % (0.0-2.0); EOS # 0.1 K/uL (0.0-0.7); EOS % 1.2 % (0.0-4.0); LYMPH # 2.3 K/uL (1.0-4.3); LYMPH % 26.1 % (20.0-40.0); MEAN CELL VOLUME 91.7 fl (81.0-99.0); MEAN CORPUSCULAR HEMOGLOBIN 31.3 pg (27.0-31.0); MEAN CORPUSCULAR HGB CONC 34.1 g/dL (33.0-37.0); MEAN PLATELET VOLUME 10.3 fl (7.2-11.7); MONO # 0.7 K/uL (0.0-0.8); MONO % 7.8 % (0.0-10.0); NEUT # 5.6 K/uL (1.8-7.0); NEUT % 64.5 % (50.0-75.0); NRBC % 0.1 % (0.0-0.0); RBC 4.78 Mil/uL (3.80-5.20); WHITE BLOOD COUNT 8.7 K/uL (4.8-10.8)
[2018-07-27 19:32] LABS: SQUAMOUS EPITHIAL 3 /hpf (0-5); URINE BILIRUBIN NEGATIVE (NEGATIVE); URINE BLOOD SMALL (NEGATIVE); URINE CLARITY CLEAR (Clear); URINE COLOR STRAW (YELLOW); URINE GLUCOSE (UA) NEG (NEGATIVE); URINE LEUKOCYTE ESTERASE NEG Leu/uL (Negative); URINE PROTEIN NEGATIVE (NEGATIVE); URINE UROBILINOGEN 0.2-1.0 mg/dL (0.2-1.0)
[2018-07-27 19:37] LABS: ALB/GLOB RATIO 1.4 (1.0-2.1); ALBUMIN 4.3 g/dL (3.5-5.0); ALT/SGPT 33 U/L (9-52); AMYLASE 87 U/L (30-110); AST/SGOT 25 U/L (14-36); BLOOD UREA NITROGEN 11 mg/dl (7-17); CALCIUM 9.3 mg/dL (8.4-10.2); GFR NON-AFRICAN AMERICAN > 60; LIPASE 87 U/L (23-300)
--- NOTE | 2018-07-27 20:37 | ED PDOC ---
- Laboratory Results Result Diagrams: 07/27/18 19:22 07/27/18 19:22 Urine POC: Negative - ECG O2 Sat by Pulse Oximetry: 98 (RA) Pulse Ox Interpretation: Normal Medical Decision Making Medical Decision Makin Case endorsed to lyric writer, Mono BAUM, due to shift change. Pertinent details reviewed. Patient pending CT evaluation/results and further disposition. Labs reviewed. 2122 CT ABD/PELVIS RESULTS FINDINGS: LUNG BASES: The lung bases appear clear. No pleural effusions are seen. LIVER: Unremarkable. GALLBLADDER AND BILE DUCTS: The gallbladder appears within normal limits. No radioopaque gallstones are seen. No biliary ductal dilatation is evident. PANCREAS: Unremarkable. SPLEEN: Unremarkable. ADRENAL GLANDS: Unremarkable. KIDNEYS, URETERS, AND BLADDER: The kidneys appear within normal limits. There is no hydronephrosis or hydroureter. No urinary calculi are seen. STOMACH AND BOWEL: Unremarkable appearance of the stomach and bowel. No evidence of bowel obstruction. No evidence suggesting enteritis or colitis. APPENDIX: Appendix is visualized and is noninflammatory LYMPH NODES: No lymphadenopathy is evident. VASCULATURE: No evidence of abdominal aortic aneurysm. BONES: No aggressive appearing osseous lesion. No acute osseous pathology evident. MISCELLANEOUS: Intestinal pattern is nonobstructive There is a likely bilateral ovarian cysts or bilateral free pelvic fluid. There is fluid in endometrial cavity. IMPRESSION: 1. Appendix is visualized and is noninflammatory 2. Intestinal pattern is nonobstructive 3. There is a likely bilateral ovarian cysts or bilateral free pelvic fluid. 4. There is fluid in endometrial cavity. 5. Free pelvic fluid versus bilateral ovarian cysts. Pelvic ultrasound for further evaluation if clinically warranted. Electronically signed on Jul 27, 2018 9:23:11 PM EST by: Neel Pabon M.D., Certified by ABR [id number] On re-evaluation, patient with resolution of presenting symptoms. Results discussed with demonstrated understanding. Follow up with OBGYN encouraged. Based on history, exam and diagnostic results, plan will be for outpatient follow up with OBGYN. Patient instructed to follow-up with pmd / referral provided / the clinic in 1- 2 days without fail. Advised to take medication as prescribed. Return to the emergency room at any time for any new or worsening symptoms. Patient states she fully agrees with and understands discharge instructions. States that she agrees with the plan and disposition. Verbalized and repeated discharge instructions and plan. I have given the patient opportunity to ask any additional questions. Disposition Counseled Patient/Family Regarding: Studies Performed, Diagnosis, Need For Followup, Rx Given - Clinical Impression Clinical Impression: Abdominal cramps, Ovarian cyst - POA Present On Arrival: None - Disposition Referrals: your, OBGYN [Other] [facility] [Outside] Disposition: Routine/Home Disposition Time: 21:40 Condition: STABLE Additional Instructions: La atencin mdica de emergencia que recibi hoy se dirigi a mami sntomas agudos. Si le recetaron algn medicamento, llnelo y tmelo segn las indicaciones. Los sntomas pueden tardar varios sarabia en resolverse. Regrese al Departamento de Emergencias si mami sntomas empeoran, no mejoran o si tiene otros problemas. Comunquese con roe mdico dentro de 2 sarabia para idalia nueva evaluacin y chris un seguimiento o llame a luiz de los mdicos / clnicas a los que argueta sido referido y que figuran en el formulario de Informacin de visita al paciente que se incluye en roe paquete de riley. Lleve todos los documentos que le entregaron al momento del riley junto con todos los medicamentos que est tomando para roe visita de seguimiento. Nuestro tratamiento no puede reemplazar la atencin mdica continua por parte de un proveedor de atencin primaria (PCP) fuera del departamento de emergencias. Prescriptions: RX: Naproxen 500 mg PO BID PRN #20 tab PRN Reason: Pain, Moderate (4-7) Instructions: Ovarian Cysts, Acute Abdomen (Belly Pain), Adult (DC) Forms: [employer] (Slovak) Print Language: MALAY Results - Lab Results Lab Results: 07/27/18 07/27/18 07/27/18 19:22 19:22 19:22 WBC 8.7 RBC 4.78 Hgb 15.0 Hct 43.8 MCV 91.7 MCH 31.3 H MCHC 34.1 RDW 13.0 Plt Count 192 MPV 10.3 Neut % (Auto) 64.5 Lymph % (Auto) 26.1 [place] % (Auto) 7.8 Eos % (Auto) 1.2 Baso % (Auto) 0.4 Neut # (Auto) 5.6 Lymph # (Auto) 2.3 [place] # (Auto) 0.7 Eos # (Auto) 0.1 Baso # (Auto) 0.0 Sodium 140 Potassium 3.4 L Chloride 105 Carbon Dioxide 22 Anion Gap 16 BUN 11 Creatinine 0.4 L Est GFR ( Amer) > 60 Est GFR (Non-Af Amer) > 60 Random Glucose 99 Calcium 9.3 Total Bilirubin 0.7 AST 25 ALT 33 Alkaline Phosphatase 104 Total Protein 7.5 Albumin 4.3 Globulin 3.1 Albumin/Globulin Ratio 1.4 Amylase 87 Lipase 87 Urine Color Straw Urine Clarity Clear Urine pH 6.0 Ur Specific [place] 1.006 Urine Protein Negative Urine Glucose (UA) Neg Urine Ketones Negative Urine Blood Small Urine Nitrate Negative Urine Bilirubin Negative Urine Urobilinogen 0.2-1.0 Ur Leukocyte Esterase Neg Urine RBC (Auto) 5 H Urine Microscopic WBC 1 Ur Squamous Epith Cells 3
[2018-07-27] MEDS ORDERED: Sodium Chloride 0.9% 50 ML IV ONE (20:42)
[2018-07-27] MEDS ORDERED: Iohexol 300 100 ML IJ ONE (20:42)
[2018-07-27 21:45] VITALS: BP 115/68; PULSE 78; RESP 16; TEMP 98.8
[2018-07-27 22:38] VITALS: O2SAT 98
--- NOTE | 2018-07-28 10:59 | CT ---
Date of service: 07/27/2018 PROCEDURE: CT Abdomen and Pelvis. HISTORY: Epigastric abdominal pain, nausea, r/o appy COMPARISON: Comparison made with prior CT scan abdomen pelvis 03/18/2013 TECHNIQUE: CT scan of the abdomen and pelvis was performed following oral and intravenous injection of approximately 95 cc Omnipaque 300 contrast material. Additional 2D coronal and sagittal reformatted images were obtained. . Radiation dose: Total exam DLP = 328.58 mGy-cm. This CT exam was performed using one or more of the following dose reduction techniques: Automated exposure control, adjustment of the mA and/or kV according to patient size, and/or use of iterative reconstruction technique. FINDINGS: LOWER THORAX: Heart size is within range of normal. No significant pericardial effusion. There is a small hiatal hernia. Mild passive/dependent type atelectasis seen both posterior lower lung sharma. LIVER: Liver is mildly enlarged measuring over 20 cm in CC dimension. Mild to moderate diffuse fatty hepatic infiltration. No obvious hepatic mass collection or calcification.. GALLBLADDER AND BILE DUCTS: No calcified gallstones. Gallbladder exhibits a Phrygian cap. No biliary dilatation PANCREAS: Normal in size. No ductal dilatation. SPLEEN: Normal in size. ADRENALS: Normal in size. No discrete nodule. KIDNEYS AND URETERS: Normal in size without nephrolithiasis. No hydronephrosis. VASCULATURE: No aortic aneurysm. No aortic atherosclerotic calcification or mural plaque present. BOWEL: Evaluation of the bowel is somewhat limited due to incomplete opacification. The stomach is partially distended with oral contrast material some residual food debris liquid and air. Visualized loops of small bowel exhibit relatively normal contour and caliber. No evidence of acute mechanical small bowel obstruction with oral contrast material extending into the colon to the level of the hepatic flexure.. Moderate amount of stool seen throughout the large bowel consistent with fecal retention/constipation. APPENDIX: Normal appendix. PERITONEUM: No free fluid. No free air. There is a small fat containing umbilical hernia. LYMPH NODES: No enlarged lymph nodes. BLADDER: Urinary bladder is incompletely distended which may in part account for slight thick-walled appearance. Correlation with urinalysis recommended to exclude cystitis.. REPRODUCTIVE: Uterus is slightly bulky in appearance with prominent endometrium.. There is an apparent 3.2 x 2.6 cm right adnexal and suspected 13 mm left adnexal cyst. Consider follow-up pelvic ultrasound. BONES: Minor multilevel degenerative spondylosis of the lower thoracic and lumbar spine. OTHER FINDINGS: None. IMPRESSION: Hepatomegaly with fatty infiltration. Findings consistent with constipation. Uterus is slightly bulky in appearance with prominent endometrium.. There are 3.2 x 2.6 cm right adnexal and suspected 13 mm left adnexal cysts. Consider follow-up pelvic ultrasound.
--- NOTE | 2018-07-28 19:58 | CARD ---
APPROVED REPORT Date of service: 07/27/2018 EKG Measurement Heart [id number] <Conclusion> Normal sinus rhythm Normal ECG
== END 2018-07-27 22:15 | disposition home or self-care (01) ==
LOC: H.ER 17:04
DX: R10.13 Epigastric pain (principal); E11.9 Type 2 diabetes mellitus without complications; Z79.84 Long term (current) use of oral hypoglycemic drugs; E78.00 Pure hypercholesterolemia, unspecified; N83.209 Unspecified ovarian cyst, unspecified side
CPT/HCPCS: 74177; 80053; 81003; 81025; 82150; 83690; 85025; 93005; 96361; 96374; 96375; 99285; J1885; J2405; J7030; Q9966; Q9967